=== PATIENT | female | born 1940 | race Caucasian/White ===

== ENCOUNTER 2020-04-13 07:06 | Inpatient (IN) | payer OTHER ==
[~2020-04-13] VITALS: Ht 165.1 cm; Wt 56.5 kg
[2020-04-13 07:08] VITALS: BP 87/41
[2020-04-13 07:46] VITALS: BP 87/41
--- NOTE | 2020-04-13 08:27 | EKG ---
[facility] [place] [address] ELECTROCARDIOGRAM REPORT Name: LACI CM Room #: [facility]#: [id number] Admission: 04/13/20 Attend Phys: Discharge: Date of : 44 Report #: [id number] THIS REPORT FOR: cc: Kirill Hillman,Kirill Loyola,Juan Paz MD ~ THIS REPORT FOR: //name// [facility] ED Test Date: 2020-04-13 Test Time: 08:10:54 Pat Name: LACI ROMANO Department: Room: Gender: F Soc Analyst: JAZMINE SEQUEIRA : 1940 Requested By: Jordon Arevalo Order Number: [id number] MD: Juan Nicole Measurements Intervals Spencer Rate: 60 P: 40 HI: 158 QRS: -17 QRSD: 98 T: 62 QT: 493 QTc: 493 Interpretive Statements Sinus rhythm Borderline left axis deviation Borderline prolonged QT interval No previous ECG available for comparison Electronically Signed On 04-13-2020 8:27:39 CDT by Juan Nicole [email or web address] <ELECTRONICALLY SIGNED> By: Juan Nicole MD 04/13/2027 9 9 Juan Nicole MD /EPI
[2020-04-13 08:40] LABS: URINE BILIRUBIN NEGATIVE (Negative); URINE BLOOD 2+ (Negative); URINE CLARITY CLEAR; URINE COLOR YELLOW; URINE GLUCOSE-RANDOM* NEGATIVE (Negative); URINE KETONES NEGATIVE (Negative); URINE NITRITE-REFLEX NEGATIVE (Negative); URINE PROTEIN (DIPSTICK) NEGATIVE (Negative); URINE SPECIFIC GRAVITY 1.025 (1.005-1.035); URINE UROBILINOGEN 0.2 E.U./dl (0.2-1.0)
[2020-04-13 08:47] LABS: AMP/METHAMP Negative (Negative); BARBITURATES Negative (Negative); BENZODIAZEPINES Negative (Negative); COCAINE Negative (Negative); METHADONE Negative (Negative); OPIATES Negative (Negative); PCP Negative (Negative)
[2020-04-13 08:52] LABS: URINE LEUKOCYTES-REFLEX 3+ (Negative)
[2020-04-13 09:08] LABS: ABSOLUTE NEUTROPHILS 5.4 thou/uL (1.4-8.2); BASOPHILS 0.7 % (0.0-2.0); HEMATOCRIT 34.6 % (37.0-47.0); LYMPHOCYTES 18.2 % (24.0-44.0); MCH 30.2 pg (26.0-34.0); MCHC 34.5 g/dL (28.0-37.0); MCV 87.4 fL (80.0-100.0); MONOCYTES 9.3 % (1.0-8.0); PLATELET COUNT 328 thou/uL (150-400); POLYS 67.8 % (36.0-66.0); RBC 3.96 mil/uL (4.20-5.00); RDW 12.5 % (10.5-14.5)
[2020-04-13 09:22] LABS: ALBUMIN 3.6 g/dL (3.4-5.0); ANION GAP 10 mmol/L (7-16); BUN 16 mg/dL (7-18); CALCIUM 8.9 mg/dL (8.5-10.1); CHLORIDE 98 mmol/L (98-107); CO2 23 mmol/L (21-32); GLUCOSE 86 mg/dL (74-106); MAGNESIUM 1.9 mg/dL (1.8-2.4); POTASSIUM 4.1 mmol/L (3.5-5.1); SGOT 19 U/L (15-37); SGPT 24 U/L (30-65); SODIUM 131 mmol/L (136-145); TOTAL BILIRUBIN 0.2 mg/dL (0.2-1.0); TOTAL PROTEIN 7.3 g/dL (6.4-8.2); TROPONIN-I <0.06 ng/mL (<0.06)
[2020-04-13 09:35] LABS: BACTERIA-REFLEX >30 Many /HPF (None Seen); CASTS None Seen /LPF (None Seen); CRYSTALS None Seen /LPF (None Seen); SQUAMOUS 4-10 Moderate /LPF (0-3)
[2020-04-13 09:36] LABS: URINE RBC 0-2 Rare /HPF (0-2)
[2020-04-13] MEDS ORDERED: LEXAPRO 10 MG T10 M1 PO (13:00)
[2020-04-13] MEDS ORDERED: OXYBUTYNIN 5 MG5 M2 PO (13:01)
[2020-04-13] MEDS ORDERED: OXTELLAR XR300 MG PO (13:03)
[2020-04-13] MEDS ORDERED: LEVO-T75 MCG PO (13:06)
[2020-04-13] MEDS ORDERED: DESYREL150 MG PO (13:07)
[2020-04-13] MEDS ORDERED: ADDERALL 10 MG10 MG PO (13:31)
[2020-04-13] MEDS ORDERED: KLONOPIN0.5 MG PO (13:31)
[2020-04-13] MEDS ORDERED: HYDROXYZINE HCL25 M2 PO (13:33)
--- NOTE | 2020-04-13 15:26 | NUR ---
TALKED WITH DR SANTOS ABOUT THE PT'S OTHER CHRONIC COMPLAINTS SUCH SOA FROM ANXIETY AND COMPLAINTS OF ESOPHAGUS "BECOMING CONTRICTED."
--- NOTE | 2020-04-13 15:30 | NUR ---
TALKED WITH LORAINE WHO STATED HE DOES NOT NEED A HOSPITALIST CONSULTED AT THIS TIME. HE WILL ADDRESS THAT AFTER ARRIVAL TO THE FLOOR.
[2020-04-13 16:51] VITALS: BP 122/49
[2020-04-13 17:28] VITALS: BP 129/62
--- NOTE | 2020-04-13 18:41 | NUR ---
Admitted from the Emergency room at 1700 via wheelchair. Alert and oriented X4. Irritable, says does not want to be here that this is not the right place for her. Reassured, vital signs at 129/[id number] with a pulse oximetry at 99%. Denies allergies to drugs or allergies. While she says she has not lost weight says she doesnot have a good appetite. Asked to be referred to as Sharon. Says she has been admitted twice in the past for mental health issues. Says she has had her esophagus stretched and has difficulty with rice and pasta that gets caught in her throat. Patient states she has to put a finger in her throat to swallow. Denies Si/HI and AVH. Denies substance abuse. Breath sounds clear, bowel sounds active, some abdominal tenderness on the right upper and lower quadrant. Says has not had a bowel movement for a few days. Ambulatory. Gait steady. Able to perform ADLs independently. Is impatient. Oriented to the unit and procedures. Resting in room.
[2020-04-13 19:24] VITALS: BP 129/53
--- NOTE | 2020-04-14 05:27 | NUR ---
Assumed care of pt @ 1900. Pt calm et cooperative with pleasant demeanor this shift. Took medications whole without difficulty. Socialized with peers in dayroom until HS. Ambulates the halls ad adriana with steady gait. VSWNL. Health assessment with no abnormalities noted at present time. Denies SI/HI/AH/VH at present time. Currently resting in bed with eyes closed. Will continue to monitor per protocol.
[2020-04-14 07:51] VITALS: BP 114/95
--- NOTE | 2020-04-14 10:49 | NUR ---
Alert and orientated X4. Unhappy with unit. Requesting clonazapam for anxiety 03/06, decreased significantly after med administration. Frequent requests. Denies SI/HI. Breath sounds clear. Reg HR auscultated. Color pink with brisk capillary refill and palpable peripheral pulses. Independent with voiding. States she had a BM yesterday. Ambulating around unit with regular, steady gait.
[2020-04-14 17:31] LABS: FOLIC ACID 12.9 ng/mL (8.6-58.9); TSH 1.085 uIU/mL (0.358-3.740)
[2020-04-14 19:30] VITALS: BP 139/50
--- NOTE | 2020-04-15 04:51 | NUR ---
Assumed care of pt @ 1900. Pt calm et cooperaitve with pleasant demeanor this shift. Took medications whole without difficulty. VSWNL. Health assessment with no abnormalities at present time. socialized with peers in dayroom until HS. Denies any SI/HI/AH/VH at present time.Ambulates the halls ad adriana with steady gait. Currently resting in bed with eyes closed. Will continue to monitor per protocol.
[2020-04-15 08:00] VITALS: BP 128/68
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
[2020-04-15 20:27] VITALS: BP 137/56
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
[2020-04-16 07:30] VITALS: BP 137/67
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
--- NOTE | 2020-04-16 15:53 | NUR ---
On Apr 15, KAMILAH was informed that pt stated a staff member told her there was a nurse who had tested positive for COVID-19 and was currently working on the unit despite having recently tested positive vs. being in quarantine. KAMILAH spoke to the Director of the unit and was informed that no staff who is currently working on the unit has a positive COVID test. When KAMILAH attempted to discuss this concern with patient, she stated she didn't know what SW was talking about. KAMILAH didn't discuss any further. SW team will continue to monitor during this inpt stay.
[2020-04-16 19:40] VITALS: BP 111/50
[2020-04-17 04:18] VITALS: BP 111/50
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
[2020-04-17 08:50] VITALS: BP 107/45
--- NOTE | 2020-04-17 11:00 | NUR ---
DYSPHORIC MOOD-IRRITABLE AND EXPRESSING ANGER/FRUSTRATION OVER UNIT RULES "THIS IS LONGTERM" "I DON'T BELONG HERE THESE PEOPLE ARE CRAZY" WILL COME OUT FOR GROUPS BUT STRUCTURES ANY FREE TIME ISOLATING IN ROOM. REPORTS HIGH ANXIETY LEVEL RATED A 9 ON 1-10 SCALE "YOU WOULD BE NERVOUS TOO IF YOU HAD TO STAY HERE-I NEED TO DO PILATES-I NEED TO DO YOGA" RESISTVE AND NEGATIVE WHEN ATTEMPTED TO REVIEW COPING SKILLS FOR DECREASING ANXIETY STATING "I HAVE TRIED ALL OF THOSE AND EXERCISE IS THE ONLY ONE THAT WORKS AND I CAN'T DO THAT"DENIES SI/SH/HI. GAIT STEADY WITHOUT ASSIST. VS WNL AND DENIES C/O PAIN
[2020-04-17 12:35] LABS: CALCIUM 9.4 mg/dL (8.5-10.1); CREATININE 0.9 mg/dL (0.6-1.0); POTASSIUM 4.6 mmol/L (3.5-5.1)
--- NOTE | 2020-04-17 17:29 | NUR ---
KAMILAH emailed Hussein a listing of Agencies that offer home health aide services and continuous care communities to
[2020-04-17 19:33] VITALS: BP 137/73
[2020-04-18 03:29] VITALS: BP 137/73
--- NOTE | 2020-04-18 03:41 | NUR ---
Assumed care on 04/17/20 @ 19:15. Asking at this time for HS sleep meds. Education provided that the medicine order is written for amount of medicine as well as the time to take it, and her medicine is scheduled for 2100, that it cannot be given @ 19:30. Patient voiced understanding. Stated that she wants to go to sleep early and wake early to write a book. Cooperated with assessment, HRRR, Lungs CTA bilat, ABD N x 4Q over a soft flat abdomen. VS WNL SonHussein called and d/t phone problem with our cordless phone gave a message to deliver to patient, Good night, call when you can, Im going to bed shortly. This was relayed to patient, who gave a short derrick response and said, "just give me my medicine." 2100 HS meds provided @ 20:55, able to swollow meds whole with thin water. Education provided regarding priority of care in the hospital setting. Oriented x 3-4, patient very derrick with participating in mental health assessment, answering every query with, "just give me my medicine so I can go to sleep". Noted to be hording food and food beverages in her room, including thickened water, and mixture of sugar mixed into small amounts of water which she puts on her lips. Has numerous blankets crumpled on her bed, and rebuked staff for trying to make the bed and straighten blankets. When sleeping, pulls some of the blankets over her head. Also short with staff for cleaning up and emptying cups of coffee (3), hot tea (2) multiple cups of clear beverage (6) and container of nectar thickened water. Also yogarts (2). Education provided regarding eating only allowed in the day room, not in bedrooms to keep from having crumbs throughout the facility for prevention of insects. Verbalized understanding, however was very short tempered and dismissive of this rule. Returned to bed after medication administration, noted to have eyes closed, respirations even and unlabored. Bed in low position, will continue to monitor as per unit protocol for safety and comfort.
[2020-04-18 07:42] VITALS: BP 112/34
--- NOTE | 2020-04-18 11:11 | NUR ---
Nutrition: pt seen due to wound indication on nsg admission assessment. Nsg reports no wounds. Pt admitted to [facility] with pre senile paranoia, behavior disturbances. Eating 50-100)% of meals on regular diet with stable weights reported. Pt was only interested in discharging and keeping men out of her room during visit. Voiced no nutrition related concerns. Low risk.
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
[2020-04-18 19:37] VITALS: BP 124/48
--- NOTE | 2020-04-18 22:53 | NUR ---
PATIENT ASSESSED AND IS ALERT X 3. SKIN WARM AND DRY. RESP EVEN AND UNLABORED. SKIN WARM AND DRY. CHANGE DOES OF OXYCARBAZEPINE TO 300MG BID. WAS LAYING IN HER BED . WAS VERY COOPERATIVE IN TAKING MEDICATION THIS NIGHT. SON CALLED AND i TAOOK EVELYNNE IN TO HER AND i DIALED HIS NUMBER AND SHE TALKED TO HIM FOR ABOUT 10 MINUTES. WAS VERY POLITE TO HIM ON HER CONVERSATION. ALL MED TAKEN AND THEN SHE WENT TO SLEEP. NO SI/SH/HI NOTED THIS SHIFT. AMBULATORY IN ROOM AND HALLWAY. CONT PLAN OF CARE.
--- NOTE | 2020-04-19 04:29 | NUR ---
Patient has been awake at different times throughout the night. Patient politely asks for the time then returns back to bed. Remains calm, pleasant and cooperative. No delusional or demanding behaviors observed.
[2020-04-19 08:59] VITALS: BP 122/43
--- NOTE | 2020-04-19 11:21 | NUR ---
KAMILAH and Dr. Burgess spoke by phone with Pt's outpt psychiatrist, Dr. Jitendra Hayden. Dr. Hayden did not believe the Pt would benifit from a PHP or IOP at this time due to her inability to function for a long period in group and attention issues. Dr. Hayden also reported the Pt has a follow up appointment with him on 04/22/2020 @ 5:40pm
--- NOTE | 2020-04-19 11:29 | NUR ---
KAMILAH called Yaw concerning the Pt's discharge. Yaw asked about IOP, PHP, and home health aide referrals. KAMILAH informed that she emailed him a listing of agencies that offer home health aide services. Yaw stated he did recieve and had not gotten a chance to review. Yaw stated he would be off work friday and will call to set up services for the Pt. KAMILAH informd Yaw of the conversation with Dr. Hayden and his concerns of Pt not being able to participate in a PHP or IOP. KAMILAH also informed Dr. Hayden also wanted to hold off on ECT treatment. SW encouraged Yaw to find home health aide services for the Pt. SW encouraged Yaw to think about applying for medicaid for the Pt to assist with the cost of home health aide services and possible LTC in the future. Yaw stated that he nor his mother could afford AL living or LTC. KAMILAH provided education to Yaw concerning LTC and Continious Care Communities. Yaw had no further questions and stated he would be at [facility] at 6:15 pm to tranport the Pt home.
--- NOTE | 2020-04-19 11:32 | NUR ---
DURING WEEK ONE OF HER ADMISSION, LACI HAS BEEN VERY INTERACTIVE WITH HER PEER AND STAFF MEMBERS. PT HAS PROVIDED GREAT ATTENDANCE WELL A POSITIVE ATTITUDE FOR THE MOST WHILE ATTENDING RECREATION THERAPY GROUPS. IT IS ENCOURAGED BY THE RECREATION THERAPIST SHE WILL CONTINUE TO IMPROVE HER COPING SKILLS TO REDUCE ANY STRESSORS.
[2020-04-19] MEDS ORDERED: KLONOPIN0.5 MG PO (13:16)
[2020-04-19] MEDS ORDERED: OXTELLAR XR300 MG PO (13:17)
[2020-04-19] MEDS ORDERED: DIVALPROEX SOD500 M1 PO (13:17)
[2020-04-19 14:45] VITALS: BP 122/43
--- NOTE | 2020-04-19 17:52 | NUR ---
DISCHARGE INSTRUCTIONS INCLUDING RX PROVIDED-DC MEDICATIONS DOSING TIMES REVIEWED WITH PATIENT-SHE STATES UNDERSTANDING AND DENIES QUESTIONS OR CONCERNS AT THIS TIME. HOME MEDS RETRIVED FROM PHARMACY AND SENT WITH PATIENT-BELONGINGS CHECKED AGAINST INVENTORY AND REVIEWED WITH PATIENT WHO ACKNOWLEDGES RECEIPT OF ALL PROPERTY WITH EXCLUSION OF BELONGINGS STORED IN SECURITY-SECURITY CALLED AND NOTIFIED OF PTS DISCHARGE. DENIES CONCERNS AT TIME OF DC-DENIES SI/SH/HI. DENIES PAIN/DISCOMFORT. NO NOTED OR REPORTED PSYCHOSIS-DOES REPORT SOME ANXIETY R/T DC BUT STATES "I WILL FEEL BETTER ONCE I GET OUT OF HERE AND AWAY FROM THESE PEOPLE" DC VIA WC ACCOMPNED BY STAFF TO SON-PRIVATE VEHICLE
== END 2020-04-19 17:50 | disposition home or self-care (01) | DRG 885 ==
LOC: ER 07:06 → SBH 09:58 → EROBS 09:58 → SBH 09:58
PROVIDERS: Emergency Medicine; ADMIT Psychiatry & Neurology Psychiatry; ATTEND Psychiatry & Neurology Psychiatry
DX: F31.9 Bipolar disorder, unspecified (principal); F03.91 Unspecified dementia, unspecified severity, with behavioral disturbance; N39.0 Urinary tract infection, site not specified; E87.1 Hypo-osmolality and hyponatremia; F41.9 Anxiety disorder, unspecified; G89.29 Other chronic pain; M25.559 Pain in unspecified hip; Z60.2 Problems related to living alone; E03.9 Hypothyroidism, unspecified; F20.9 Schizophrenia, unspecified; R32 Unspecified urinary incontinence; Z20.828 Contact with and (suspected) exposure to other viral communicable diseases; F41.0 Panic disorder [episodic paroxysmal anxiety]; Z73.1 Type A behavior pattern; Z79.899 Other long term (current) drug therapy
CPT/HCPCS: 10880